=== PATIENT | male | born 1960 | race Caucasian/White ===

== ENCOUNTER 2023-06-30 08:50 | Outpatient (OUT) | payer OTHER, SELFPAY ==
--- NOTE | 2023-06-30 09:04 | XR_ITS ---
The [address] [address] Patient Name: HERNANDEZ TRAN MRN: [id number] date: 1960 Sex: M Assigned Patient Location: RAD Current Patient Location: RAD Accession/Order Number: [id number] Exam Date: 06/30/2023 09:15 Report Date: 06/30/2023 10:12 At the request of: NON-STAFF PHYSICIAN Procedure: XR DEXA axial skeleton EXAMINATION: XR DEXA axial skeleton HISTORY: Osteopenia M85.80 COMPARISON: No relevant comparison available. TECHNIQUE: Dual-energy X-ray absorptiometry (DXA) was performed. FINDINGS: SPINE ANALYSIS: Average bone mineral density is 1.431 g/cm2. T-score (standard deviation relative to young adult mean): 1.8 . HIP ANALYSIS: Lowest bone mineral density is within the right femoral trochanter, 0.833 g/cm2. T-score (standard deviation relative to young adult mean): -0.9 . XR/XR DEXA axial skeleton IMPRESSION: World [employer] Classification: Normal - Low Fracture Risk Electronically authenticated by: ALEJANDRO VORA Date: 06/30/2023 10:12
== END 2023-06-30 08:51 | disposition home or self-care (01) ==
LOC: RAD 08:59
DX: M85.80 Other specified disorders of bone density and structure, unspecified site (principal)
CPT/HCPCS: 77080